=== PATIENT | female | born 1950 | race Caucasian/White ===

== ENCOUNTER 2018-10-05 09:56 | Outpatient (CLI) | payer MEDICARE | END 2018-10-05 09:57 | disposition home or self-care (01) | LOC: BICMAMMO 09:56 | PROVIDERS: ATTEND Obstetrics & Gynecology | DX: Z12.31 Encounter for screening mammogram for malignant neoplasm of breast (principal) | CPT/HCPCS: 77063; 77067 ==

== ENCOUNTER 2018-12-24 13:13 | Outpatient (CLI) | payer MEDICARE ==
--- NOTE | 2018-12-24 17:05 | MRI ---
MRI LUMBAR SPINE WITHOUT CONTRAST: Date: 12/24/18 HISTORY: S32.000A wedge compression fracture of unspecified lumbar vertebra. COMPARISON: MRI lumbar spine dated 07/24/17. FINDINGS: Not completely evaluated on this examination is abnormal edema in the T10 vertebral body suggesting a fracture. Mild prevertebral edema at this level. There is a chronic compression fracture of L2 invol ving the anterior vertebral body and superior end plate without progressive height loss. There appear s to be some indwelling cement. No marrow infiltrative process. Modic Type I end plate changes L4-5. Aortic contour is nonaneurysmal. Moderate bilateral symmetric paraspinal muscle atrophy. No hydroneph rosis. Levels are as follows: L1-2: Broad based posterior disc osteophyte complex. Mild facet arthropathy. Mild effacement of vent ral CSF space, although spinal canal is significantly narrowed. There is moderate to severe right and moderate left-sided neural foraminal narrowing with abutment of the left traversing nerve root. L2-3: Mild circumferential disc bulge with bilateral subforaminal posterior disc osteophyte complexe s. Moderate facet arthropathy. There is moderate bilateral neural foraminal narrowing. L3-4: Moderate disc desiccation. There is circumferential disc bulge, although worse than the left p aracentral subforaminal and extraforaminal regions. Moderate to severe left and moderate right-sided facet arthropathy. Moderate to severe left-sided neural foraminal narrowing and moderate right-sided neural foraminal narrowing with abutment of the left exiting and traversing nerve roots. Spinal canal is narrowed to approximately 5.0 mm. L4-5: There is anterolisthesis of L4 over L5 of approximately 5.0 mm due to severe facet degenerativ e changes. Anterolisthesis, as well as posterior disc osteophyte complex, causes moderate to severe l eft and moderate right-sided neural foraminal narrowing with abutment of both exiting nerve roots and left traversing nerve root. There is also ligamentum flavum hypertrophy at this level. There is mild spinal canal narrowing approximately 8.0 mm. L5-S1: Mild degenerative disc space height loss. No significant neural foraminal or spinal canal hilda rowing. Severe facet arthropathy. IMPRESSION: 1. Abnormal increased signal incompletely evaluated with the T10 vertebral body, likely a fracture. Underlying malignancy cannot be totally excluded on the basis of this examination. 2. Multilevel moderate to severe spondylosis with multilevel neural foraminal and spinal canal narro wing as described. Findings are similar to minimally progressive from the 07/24/17 exam. POS: [facility]
== END 2018-12-24 13:14 | disposition home or self-care (01) ==
LOC: MRI 13:13
PROVIDERS: ATTEND Specialist
DX: S32.000A Wedge compression fracture of unspecified lumbar vertebra, initial encounter for closed fracture (principal); M47.816 Spondylosis without myelopathy or radiculopathy, lumbar region; M48.061 Spinal stenosis, lumbar region without neurogenic claudication
CPT/HCPCS: 72148

== ENCOUNTER 2019-01-14 09:32 | Outpatient (CLI) | payer MEDICARE ==
--- NOTE | 2019-01-14 14:57 | MRI ---
MRI THORACIC SPINE: History: Compression fracture of T7. Technique: Multiplanar, multisequence noncontrast MRI images were obtained of the thoracic spine. FINDINGS: Images demonstrate areas of signal abnormality in the T11 vertebral body. There is collapse of the elmore perior endplate of T11 with approximately 30% height loss. No significant evidence of central stenosi s. No significant evidence of thecal sac compression seen. There is mild to moderate bilateral neural foraminal narrowing at T10-11. The T7 level is unremarkable. There is an old fracture at the L3 level. When compared to previous old MRI this patient may have a t ranslational S1 vertebral body which is extensively lumbarized. IMPRESSION: T11 acute compression fracture with height loss. POS: [facility]
== END 2019-01-14 09:33 | disposition home or self-care (01) ==
LOC: SCSMRI 09:32
PROVIDERS: ATTEND Specialist
DX: M48.54XA Collapsed vertebra, not elsewhere classified, thoracic region, initial encounter for fracture (principal)
CPT/HCPCS: 72146

== ENCOUNTER 2019-10-27 12:58 | Outpatient (CLI) | payer MEDICARE ==
--- NOTE | 2019-10-27 13:27 | MMO ---
Left Breast MAMMO Unilat Diag DDI LT+ROSALIA. CLINICAL HISTORY: Patient is 69 years old and is seen for additional evaluation requested at current screening. The patient has no family history of breast cancer. The patient has no personal history of cancer. 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 marker on s and left Stereotatic Biopsy in June, - benign. VIEWS: The views performed were: left craniocaudal spot compression with tomosynthesis; left mediolateral oblique spot compression with tomosynthesis; and left mediolateral with tomosynthesis. FILMS COMPARED: The present examination has been compared to prior imaging studies performed at [facility] on 10/19/2019, and at [facility] on 09/12/2016, 09/25/2017 and 10/05/2018. This study has been interpreted with the assistance of computer-aided detection. MAMMOGRAM FINDINGS: There are scattered fibroglandular densities. There is a stable focal asymmetry seen in the lower-inner region of the left breast. This demonstrates stablity with respect to prior screening mammograms. There are no suspicious masses, suspicious calcifications, or new areas of architectural distortion. IMPRESSION: THERE IS NO MAMMOGRAPHIC EVIDENCE OF MALIGNANCY. A ROUTINE FOLLOW-UP MAMMOGRAM IN 1 YEAR IS RECOMMENDED. THE RESULTS OF THIS EXAM WERE SENT TO THE PATIENT. ACR BI-RADS Category 2 - Benign finding MAMMOGRAPHY NOTE: 1. A negative mammogram report should not delay a biopsy if a dominant of clinically suspicious mass is present. 2. Approximately 10% to 15% of breast cancers are not detected by mammography. 3. Adenosis and dense breasts may obscure an underlying neoplasm. Reported by: DAVE YE MD Electonically Signed: [id number]
== END 2019-10-27 12:59 | disposition home or self-care (01) ==
LOC: BICMAMMO 12:58
PROVIDERS: ATTEND Obstetrics & Gynecology
DX: R92.8 Other abnormal and inconclusive findings on diagnostic imaging of breast (principal)
CPT/HCPCS: 77065; G0279

== ENCOUNTER 2021-10-11 07:53 | Outpatient (CLI) | payer MEDICARE | END 2021-10-11 07:54 | disposition home or self-care (01) | LOC: BICMAMMO 07:53 | PROVIDERS: ATTEND Obstetrics & Gynecology | DX: M81.0 Age-related osteoporosis without current pathological fracture (principal) | CPT/HCPCS: 77080 ==

== ENCOUNTER 2023-03-14 14:27 | Emergency (ER) | payer OTHER, MEDICARE ==
[2023-03-14] MEDS ORDERED: Ondansetron ODT 4 MG TAB ONE (16:38)
[2023-03-14] MEDS ORDERED: Morphine 4 MG/ML VIAL ONE (16:38)
== END 2023-03-14 17:23 | disposition home or self-care (01) ==
LOC: ERS 14:27
DX: S09.90XA Unspecified injury of head, initial encounter (principal); I10 Essential (primary) hypertension; E78.5 Hyperlipidemia, unspecified; W01.0XXA Fall on same level from slipping, tripping and stumbling without subsequent striking against object, initial encounter; Z87.891 Personal history of nicotine dependence
CPT/HCPCS: 70450; 72125; 72170; 93005; 96372; J2270; Q0162

== ENCOUNTER 2023-10-28 09:29 | Outpatient (CLI) | payer MEDICARE | END 2023-10-28 09:30 | disposition home or self-care (01) | LOC: MRI 09:29 | PROVIDERS: ATTEND Specialist | DX: M51.16 Intervertebral disc disorders with radiculopathy, lumbar region (principal); M47.26 Other spondylosis with radiculopathy, lumbar region; M41.9 Scoliosis, unspecified; M89.38 Hypertrophy of bone, other site | CPT/HCPCS: 72148 ==

== ENCOUNTER 2024-04-22 08:24 | Emergency (ER) | payer MEDICARE | END 2024-04-22 13:10 | LOC: ERS 08:24 | DX: S32.031A Stable burst fracture of third lumbar vertebra, initial encounter for closed fracture (principal); I10 Essential (primary) hypertension; Z87.891 Personal history of nicotine dependence; W07.XXXA Fall from chair, initial encounter | CPT/HCPCS: 99283 ==

== ENCOUNTER 2024-08-04 08:17 | Outpatient (CLI) | payer MEDICARE | END 2024-08-04 08:18 | disposition home or self-care (01) | LOC: CT 08:17 | PROVIDERS: ATTEND Nurse Practitioner Family | DX: S32.030G Wedge compression fracture of third lumbar vertebra, subsequent encounter for fracture with delayed healing (principal); M51.36 Other intervertebral disc degeneration, lumbar region; M48.061 Spinal stenosis, lumbar region without neurogenic claudication; M47.816 Spondylosis without myelopathy or radiculopathy, lumbar region; M47.817 Spondylosis without myelopathy or radiculopathy, lumbosacral region; I70.8 Atherosclerosis of other arteries | CPT/HCPCS: 72131 ==

== ENCOUNTER 2025-09-08 08:23 | Outpatient (CLI) | payer MEDICARE | END 2025-09-08 08:24 | disposition home or self-care (01) | LOC: BICMRI 08:23 | PROVIDERS: ATTEND Specialist | DX: M48.062 Spinal stenosis, lumbar region with neurogenic claudication (principal); M41.9 Scoliosis, unspecified; M47.816 Spondylosis without myelopathy or radiculopathy, lumbar region; S32.029A Unspecified fracture of second lumbar vertebra, initial encounter for closed fracture; S32.031A Stable burst fracture of third lumbar vertebra, initial encounter for closed fracture | CPT/HCPCS: 72148 ==

== ENCOUNTER 2025-09-14 07:48 | Outpatient (CLI) | payer MEDICARE | END 2025-09-14 07:49 | disposition home or self-care (01) | LOC: BICMAMMO 07:48 | PROVIDERS: ATTEND Internal Medicine Rheumatology | DX: M81.0 Age-related osteoporosis without current pathological fracture (principal) | CPT/HCPCS: 77080 ==